=== PATIENT | male | born 1985 | race Caucasian/White ===

== ENCOUNTER 2024-04-11 22:34 | Outpatient (REF) | payer BC, SELFPAY ==
[2024-04-11 20:51] LABS: ESR 6 mm/hr (0-15); HCT 44.4 % (40.0-50.0); HGB 15.3 g/dL (13.5-17.5); MCH 30.2 pg (27.0-33.0); MCHC 34.5 % (32.0-36.0); MCV 88 fL (80-95); MPV 11.3 fL (8.0-11.0); Platelet Count 212 10^3/uL (130-400); RBC 5.06 10^6/uL (4.36-5.78); RDW 12.2 % (11.8-14.1); RDW-SD 39.4 fL
[2024-04-11 20:58] LABS: C-Reactive Protein < 0.50 mg/dL (<or=0.5)
--- OUTSIDE RECORDS SUMMARY | 2024-04-11 22:37 | XMS_ITS | Encounter Summary ---
Author Organization [facility] Address [address] [place] [id number] Care Team Providers Care Fur Finisher Tailor Name Role Phone Unavailable Primary Care Provider Unavailabl e Encounter Details Date Type Department Care Team (Late st Contact Info) Description 01/14/2020 Lab Requisition [facility] Pathology & Laboratory Medicine - [address] [address] Unknown, Provider, Social History Tobacco Use Types Packs/Day Years Used Date Smoking Tobacco: Never Assessed Sex and Gender Information Value Date Recorded Sex Assigned at Not on file Gender Identity Not on file Sexual Orientation Not on file documented as of this encounter Plan of Treatment Not on file documented as of this encounter Procedures Procedure Name Priority Date/Time Associated Diagnosis Comments ZZCOVID-19 TEST [facility] PCR Today 01/14/2020 14:11 EDT COVID-19 TESTING Routine 01/14/2020 14:1 1 EDT documented in this encounter Results * COVID-19 TEST [facility] PCR (01/14/2020 14:11 EDT) Swab ENTIRE NASOPHARYNX / Unknown 01/14/2020 14:11 EDT 01/14/2020 21:30 EDT Provider Unknown MICROBIOLOGY - GENER AL ORDERABLES [facility] [address] [place] [address] * COVID-19 TESTING (01/14/2020 14:11 EDT) COVID-19 rt-PCR Result Negative Negative 01/15/2020 7:35 EDT [facility] Comment: Negative results do not preclude 2019-nCoV infection and should not be used as the sole basis for treatment or other patient management decisions. Negative results must be combined with clinical observations, patient history, and epidemiological information. This test has not been FDA cleared or approved. This test has been authorized by FDA under an EUA for use by authorized laboratories. This test has been authorized only for detection of nucleic acid from 2019-nCoV, not for any other viruses or pathogens. This test is only authorized for the duration of the declaration that circumstances exist justifying the authorization of emergency use of in vitro diagnostic tests for detection and/or diagnosis of 2019-nCoV under section 564(b)(1) of Act, 21 U.S.C ?? 360bbb-3(b) (1), unless the authorization is terminated or revoked sooner. Performed on the [employer] instrument Performing Lab [facility] 01/15/2020 7:35 EDT [facility] Swab ENTIRE NASOPHARYNX / Unknown 01/14/2020 14:11 EDT 01/14/2020 21:30 EDT Provider Unknown MICROBIOLOGY - GENER AL ORDERABLES [facility] [address] [place] [address] documented in this encounter Visit Diagnoses Not on filedocumented in this encounter
--- OUTSIDE RECORDS SUMMARY | 2024-04-11 22:37 | XMS_ITS | Continuity of Care Document ---
Author Organization [facility] Address [address] [place] [address] Care Team Providers Care Applied Psychology Professor Name Role Phone Ayan Pena Primary Care Physician Encounter [facility] Date(s): 03/09/24 - 03/09/[address] [id number] Discharge Disposition: Home or Self Care Attending Physician: Yamilka Diez Admitting Physician: Yamilka Diez Allergies, Adverse Reactions, Alerts No Known Medication Allergies Results Laboratory List Name Date Automated Diff 03/09/24 C-Reactive Protein 03/09/24 CBC w/ Diff 03/09/24 Comprehensive Metabolic Panel 03/09/24 Sedimentation Rate (ESR) 03/09/24 Most recent to oldest [Reference Range]: 1 WBC [5.0-10.0 x10^3/mcL] 5.5 x10^3/mcL (03/09/24 4:15 PM) RBC [4.6-6.0 x10^6/mcL] 4.9 x10^6/mcL (03/09/24 4:15 PM) Neutro Auto [40.0-75.0 %] 52.3 % (03/09/24 4:15 PM) Lymph Auto [20.0-50.0 %] 32.7 % (03/09/24 4:15 PM) [place] Auto [2.0-15.0 %] 9.9 % (03/09/24 4:15 PM) Basophil Auto [0.0-1.0 %] 0.7 % (03/09/24 4:15 PM) BUN [7-18 mg/dL] 15 mg/dL (03/09/24 4:15 PM) Glucose Level [74-106 mg/dL] 95 mg/dL (03/09/24 4:15 PM) Potassium Level [3.5-5.1 mmol/L] 4.2 mmo l/L (03/09/24 4:15 PM) MCV [80.0-96.0 fL] 87.8 fL (03/09/24 4:15 PM) CRP [<=10.0 mg/L] 0.6 mg/L (03/09/24 4:15 PM) AST [15-37 unit/L] 12 unit/L *LOW* (03/09/24 4:15 PM) ALT [16-63 unit/L] 30 unit/L (03/09/24 4:15 PM) MCHC [31.0-35.0 g/dL] 34.6 g/dL (03/09/24 4:15 PM) Sodium Level [136-145 mmol/L] 143 mmol/L (03/09/24 4:15 PM) Hct [41.0-51.0 %] 43.3 % (03/09/24 4:15 PM) Calcium Level [8.5-10.1 mg/dL] 8.8 mg/dL (03/09/24 4:15 PM) Albumin Level [3.4-5.0 g/dL] 4.0 g/dL (03/09/24 4:15 PM) Protein Total [6.4-8.2 g/dL] 7.4 g/dL (03/09/24 4:15 PM) MCH [26.0-32.0 pg] 30.4 pg (03/09/24 4:15 PM) Neutro Absolute 2.9 x10^3/mcL *NA* (03/09/24 4:15 PM) Bilirubin Total [0.2-1.0 mg/dL] 0.4 mg/d L (03/09/24 4:15 PM) Hgb [14.0-18.0 g/dL] 15.0 g/dL (03/09/24 4:15 PM) Alk Phos [46-146 unit/L] 58 unit/L (03/09/24 4:15 PM) Platelets [130-450 x10^3/mcL] 210 x10^3/ mcL (03/09/24 4:15 PM) CO2 [21-32 mmol/L] 27 mmol/L (03/09/24 4:15 PM) eGFR Non-AA [>=60] 112 (03/09/24 4:15 PM) eGFR AA [>=60] 112 (03/09/24 4:15 PM) Chloride Level [98-107 mmol/L] 106 mmol/ L (03/09/24 4:15 PM) RDW-CV [11.5-14.5 %] 12.4 % (03/09/24 4:15 PM) Imm Gran Auto [0.0-0.9 %] 0.2 % (03/09/24 4:15 PM) Creatinine Level [0.70-1.30 mg/dL] 0.91 mg/dL (03/09/24 4:15 PM) Eos, Auto [1.0-6.0 %] 4.2 % (03/09/24 4:15 PM) ESR, Westergren [0-20 mm/hr] 2 mm/hr (03/09/24 4:15 PM) Social History Social History Type Response Sex Male Patient Care team information Care Team Personnel Name: Ayan Pena MD Position: Physician Member Role: Primary Care Physician Address: Address: [address] [place] [phone]- [place]
--- OUTSIDE RECORDS SUMMARY | 2024-04-11 22:37 | XMS_ITS | Referral Summary ---
Author Organization [facility] Address [address] [place] [address] Care Team Providers Care Filter Plant Operator Name Role Phone Unavailable Primary Care Provider Unavailabl e Social History Tobacco Use Types Packs/Day Years Used Date Smoking Tobacco: Never Assessed Interpersonal Safety Answer Date Record ed Physically Hurt Never 08/12/2020 Verbally Threaten Not on file 08/12/2020 Sex and Gender Information Value Date Recorded Sex Assigned at Not on file Gender Identity Not on file Sexual Orientation Not on file Plan of Treatment Not on file
--- OUTSIDE RECORDS SUMMARY | 2024-04-11 22:37 | XMS_ITS | Continuity of Care Document ---
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 It does not include entries that were removed or entered in error. Problem Status Onset Date Problem Type Date of Resolution Comments Source Concussion injury of brain Active Condition [facility] Major depressive disorder Active Condition [facility] Other Specified Counseling Active Condition [facility] Posttraumatic stress disorder Active Condition [facility] Tinnitus Active Condition [facility] adjustment disorder Active Condition [facility] depression Active Condition [facility] visit for: services physical separation Active Condition [facility] Occupational Therapy Active Condition DoD Suicidal Ideation Active Condition [facility] alcohol dependence (alcoholism) Active Condition [facility] major depression, recurrent Active Condition [facility] visit for: routine eye exam Active Condition DoD palpitations Active Condition DoD lower back pain Active Condition DoD Need For Vaccination Against Smallpox Inactive Condition DoD Need For Vaccination Against Bacterial Diseases Inactive Condition DoD visit for: screening exam pulmonary tuberculosis Active Condition DoD visit for: services physical Active Condition DoD Need For Vaccination Hepatitis A Inactive Condition DoD Need For Vaccination Typhoid Inactive Condition [facility] Inquiry And Counseling: Functional Status At Home Active Condition [facility] Guidance: Concerns About Unsafe Sexual Practices Active Condition [facility] Patient Education - HIV Active Condition [facility] visit for: screening exam Active Condition [facility] visit for: issue medical certificate Inactive Condition DoD allergy to certain foods Active Condition possibly to red dye DoD Murmurs Active Condition newly diagnosed DoD urticaria Active Condition DoD epistaxis Active Condition none now after pack removal. d/c abx. afrin prn bleeding. saline qid for 5 days. f/u with [facility] prn. 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 It does not include entries that were removed or entered in error. Substance Category Reaction Severity Reaction type Status Date Reported Comments Source No Known Allergies Drug allergy (disorder) active 06/19/2007 [place] Immunizations Combined list of available immunizations from the Department of Defense and Veterans Affairs facilities. Immunization Series Date Given Administered By Site Reaction Lot Number CVX Code Drug Law Firm Partner Status Comments Source FLU,3 YRS (HISTORICAL) 2014 88 complet ed PROVIDE [facility]TE [facility] hepatitis B vaccine, adult dosage 3 2007 [id number] Unknown (UNK) comple t ed hepatitis B vaccine, adult dosage DoD influenza virus vaccine, live, attenuated, for intranasal use 1 2007 [id number] [employer] (MED) complet ed influenza virus vaccine, live, attenuate d, for intranasa l use DoD anthrax vaccine 4 2007 [id number] Sanofi Pasteur ([facility]) complet ed anthrax vaccine DoD typhoid Vi capsular polysaccharid e vaccine 1 2007 [id number] Unknown (UNK) comple t ed typhoid Vi capsular polysacch aride vaccine DoD anthrax vaccine 3 2006 UNK 24 [employer] ([facility]) complet ed anthrax vaccine DoD influenza virus vaccine, live, attenuated, for intranasal use 1 2006 [id number] [employer] (MED) complet ed influenza virus vaccine, live, attenuate d, for intranasa l use DoD anthrax vaccine 2 2006 [id number] [employer] ([facility]) complet ed anthrax vaccine DoD vaccinia (smallpox) vaccine 1 2006 [id number] Niranjan ([facility]) complet ed vaccinia (smallpox ) vaccine DoD anthrax vaccine 1 2006 UNK 24 Unknown (UNK) comple t ed anthrax vaccine DoD influenza virus vaccine, split virus (incl. purified surface antigen)-reti red CODE 1 2005 [id number] Sanofi Pasteur ([facility]) complet ed influenza virus vaccine, split virus (incl. purified surface antigen)- retired CODE DoD typhoid Vi capsular polysaccharid e vaccine 1 2005 [id number] Sanofi Pasteur ([facility]) complet ed typhoid Vi capsular polysacch aride vaccine DoD hepatitis A and hepatitis B vaccine 3 2005 [id number] Merck (MSD) complet ed hepatitis A and hepatitis B vaccine DoD hepatitis A and hepatitis B vaccine 2 2005 [id number] 104 SmithKline (SKB) complet ed hepatitis A and hepatitis B vaccine DoD varicella virus vaccine 1 2005 NONE 21 (NON) Not Given varicella virus vaccine DoD hepatitis B vaccine, adult dosage 1 2005 NONE 43 (NON) Not Given hepatitis B vaccine, adult dosage DoD hepatitis A vaccine, adult dosage 1 2005 [id number] 52 [employer] (SKB) complet ed hepatitis A vaccine, adult dosage DoD measles, mumps and rubella virus vaccine 1 2005 [id number] Merck (MSD) complet ed measles, mumps and rubella virus vaccine DoD tetanus and diphtheria toxoids, adsorbed, preservative free, for adult use (2 Lf of tetanus toxoid and 2 Lf of diphtheria toxoid) 1 2005 [id number] Sanofi Pasteur ([facility]) complet ed tetanus and diphtheri a toxoids, adsorbed, preservat [place] free, for adult use (2 Lf of tetanus toxoid and 2 Lf of diphtheri a toxoid) DoD poliovirus vaccine, inactivated 1 2005 [id number] Sanofi Pasteur ([facility]) complet ed polioviru s vaccine, inactivat ed DoD influenza virus vaccine, split virus (incl. purified surface antigen)-reti red CODE 1 2005 [id number] [employer]. (MED) complet ed influenza virus vaccine, split virus (incl. purified surface antigen)- retired CODE DoD meningococcal polysaccharid e vaccine (MPSV4) 1 2005 [id number] Sanofi Pasteur ([facility]) complet ed meningoco ccal polysacch aride vaccine (MPSV4) DoD Encounters Combined list of: 1) Encounters from Department of Veterans Affairs facilities going back up to thelast 18 months. 2) Encounters from the Department of Defense facilities going back up to 280 months. Location Location Details Encounter Type Encounter Number Reason For Visit Attending Provider ADM Date DC Date Status Disposition Source [place] Enrique [place] [place] OUTPATIENT [id number] BRIAN Coley 09/28 Released w/o Limitations [place]) [place] [id number] IMM MAI MCKINNON 09/29 Released w/o Limitations [place] ) [place]IENT [id number] f/u from er for noseble eding and cough BETH SMITH S 11/07 Sick at Home/Quarter s [place]rique [place]) [place] [facility] OUTPATIENT [id number] Anterio r epistax is/ Anemia SILVANASRINI COLBY 11/09 Released w/o Limitations [place] [facility] [place] Enrique [place] OUTPATIENT [id number] sudden onset of nausea NUFERNANDA ROYAL 11/10 Released w/o Limitations [place] Enrique [place]) [place]rique [place]) OUTPATIENT [id number] food allergi es SIENA GUADARRAMA 11/11 Released w/o Limitations [place]rique [place]) [place] Enrique Hernandez [place] OUTPATIENT [id number] A [employer] e screen HEENA BROWNE 12/21 Released w/o Limitations [place]rique [place]) [place] Enrique Hernandez [place] OUTPATIENT [id number] A2/58 por shots. HEENA BROWNE 01/04 Released w/o Limitations [place] Enrique [place] OUTPATIENT [id number] self-ca re and HIV/STD classes MARCELINA TAYLOR JR 03/15 Released w/o Limitations [facility]) [facility] Optometry ) [facility] [id number] [facility]/18 [facility]ased w/o Limitations [facility] Optomet ry) [facility] Physical Exam) OUTPATIENT [id number] GLADYS BELTRE 03/18 Released w/o Limitations [facility] Physica l Exam) [facility] Pre/Post Deploymen t) OUTPATIENT [id number] MARIANNA COPELAND Rahel 05/06 Released w/o Limitations [facility] VCZ Pre/Pos t Deploym ent) [facility] Pre/Post Deploymen t) OUTPATIENT [id number] [facility] NICKY TORRES 11/22 Released w/o Limitations [facility] Pre/Pos t Deploym ent) [facility] Pre/Post Deploymen t) OUTPATIENT [id number] NICKY TORRES 01/30 Released w/o Limitations [facility] Pre/Pos t Deploym ent) [facility] OUTPATIENT [id number] 08/21 Released w/o Limitations Theater Fac[facility] y [facility] Physical Exam) OUTPATIENT [id number] MAISHA VAUGHN 04/11 Released w/o Limitations [facility] Physica l Exam) [facility] Emergency Room) OUTPATIENT [id number] 22yo M medical clearan [place]ST [place] 06/03 Left Against Medical Advice [facility] Emergen cy Room) [facility] DIRECT TO MTF FROM OTHER THAN ER OR [facility] [id number] DIETER DAVIS 06/04 RETURNED TO DUTY [facility] General Surgery) INPATIENT [id number] OIF/OEF Audit C TRESSA Trinidad 06/06 Inpatient- Still a Patient [facility] ) [facility] Hearing Conservat ion) INPATIENT [id number] RICHARDSON DUMONT 06/12 Inpatient- Still a Patient [facility] Hearing Conserv ation) [facility] Optometry ) INPATIENT [id number] Sep LIZY Dove NMN 06/12 Inpatient- Still a Patient [facility] Opt[facility]) Procedures Combined list of: 1) Procedures from Department of Veterans Affairs facilities going back up to thelast 18 months, not all VA non-surgical procedures are included; 2) All procedures from the Department of Defense facilities. Procedure Procedure Type Code Date Perfomer Comments Pepito e Psychotherapy Individual Approximately 45 Minutes Psychotherapy Individual Approximately 45 Minutes [id number] 09/27/19 09 RICHARDSON RODRIGUEZ DoD Psychotherapy Individual Approximately 45 Minutes Psychotherapy Individual Approximately 45 Minutes [id number] 09/06/20 08 RICHARDSON RODRIGUEZ Case staffed with the Clinic Med team, was provided with a refill of citalopram 40mg and Seroquel 25mg which he states is very helpful to him. DoD Psychotherapy Individual Approx 30 Min W/ Medical Evaluation & Management Psychotherapy Individual Approx 30 Min W/ Medical Evaluation & Management 01622 08/06/20 08 ANY BONILLA [facility] Psychotherapy Individual Approximately 45 Minutes Psychotherapy Individual Approximately 45 Minutes [id number] 07/19/20 08 RICHARDSON RODRIGUEZ Also staffed case with JIM Goyal's current provider. [facility] Psychiatric Diagnostic Evaluation Review of Records and Reports Psychiatric Diagnostic Evaluation Review of Records and Reports [id number] 07/11/20 08 BRIAN LOMELI [facility] Psychotherapy Indiv Approx 45 Min W/ Medical Evaluation & Management Psychotherapy Indiv Approx 45 Min W/ Medical Evaluation & Management [id number] 07/11/20 08 BRIAN LOMELI [facility] Psychotherapy Indiv Approx 45 Min W/ Medical Evaluation & Management Psychotherapy Indiv Approx 45 Min W/ Medical Evaluation & Management 73464 06/26/20 08 BECKIE BALTAZAR [facility] Psychiatric Diagnostic Evaluation Review of Records and Reports Psychiatric Diagnostic Evaluation Review of Records and Reports [id number] 06/18/20 08 BRIAN LOMELI [facility] Psychiatric Diagnostic Evaluation Comprehensive Examination Psychiatric Diagnostic Evaluation Comprehensive Examination [id number] 06/18/20 08 BRIAN LOMELI [facility] Threshold Audiogram (Pure Tone) Threshold Audiogram (Pure Tone) 21527 06/18/20 08 RICHARDSON DUMONT [facility] Physician Supervised Ordering / Handling / Fitting Patient Devices Physician Supervised Ordering / Handling / Fitting Patient Devices 42171 06/18/20 08 LISSETT DUMONTIAN Sadie [facility] Visual Function Screening Visual Function Screening 22564 06/12/20 08 LIZY WOO [facility] Patient Training And Self-Care Skills Additional 15 Minutes Patient Training And Self-Care Skills Additional 15 Minutes [id number] 06/05/20 08 MELONY ROSARIO [facility] Occupational Therapy Evaluation Occupational Therapy Evaluation 22361 06/05/20 08 MELONY ROSARIO [facility] Physical Medicine - Group Physical Therapy Se ion Physical Medicine - Group Physical Therapy Session [id number] 06/04/20 08 EPIFANIO PERSON [facility] Psychiatric Diagnostic Evaluation Comprehensive Examination Psychiatric Diagnostic Evaluation Comprehensive Examination [id number] 06/03/20 08 BECKIE BALTAZAR [facility] Skin Test Anergy Tuberculin Intradermal Skin Test Anergy Tuberculin Intradermal 71103 04/11/20 08 BACCINELLI, ANDREAS [facility] Immunization Administration By Injection, One Vaccine Immunization Administration By Injection, One Vaccine 23141 04/11/20 08 BACCINELLI, ANDREAS [facility] Screening Test Of Visual Acuity, Quantitative, Bilateral Screening Test Of Visual Acuity, Quantitative, Bilateral 33294 04/11/20 08 BACCINELLI, ANDREAS DoD Immunization Administration By Injection, Each Additional Vaccine 01/31/20 07 BACCINELLI, ANDREAS DoD Vaccines Vaccines 67553 01/31/20 07 BACCINELLI, [facility] Anthrax Vaccine, For Subcutaneous Use 01/31/20 07 BACCINELLI, ANDREAS DoD Immunization Administration By Injection, One Vaccine Immunization Administration By Injection, One Vaccine 15674 01/31/20 07 BACCINELLI, ANDREAS DoD Immunization Administration By Injection, One Vaccine Immunization Administration By Injection, One Vaccine 31217 05/06/20 06 NOHEMY GARNETT DoD Skin Test Anergy Tuberculin Intradermal Skin Test Anergy Tuberculin Intradermal 28064 05/06/20 06 NOHEMY GARNETT DoD Typhoid Vaccine Acetone-Killed, Dried (U.S. ) Typhoid Vaccine Acetone-Killed, Dried (U.S. ) 41058 03/24/20 06 RICHARTE, GLADYS DoD Immunization Administration By Injection, Each Additional Vaccine 03/24/20 06 ROSELIABARNHARTE, GLADYS DoD Hepatitis A And Hepatitis B (Intramuscular Use) Adult Dosage Hepatitis A And Hepatitis B (Intramuscular Use) Adult Dosage 86034 03/24/20 06 BLANE BELTRERachana Banegas Immunization Administration By Injection, One Vaccine Immunization Administration By Injection, One Vaccine 01213 03/24/20 06 BLANE BELTREO [facility] Visual Function Screening Visual Function Screening 44146 03/18/20 06 TAE CARDOZA [facility] Venipuncture Venipuncture 18755 01/05/20 06 CARLO HUFF [facility] Skin Test Anergy tuberculin Skin Test Anergy tuberculin 50202 01/05/20 06 DARIANATASHACARLO A [facility] Screening Test Of Visual Acuity, Quantitative, Bilateral Screening Test Of Visual Acuity, Quantitative, Bilateral 37475 09/30/19 06 BRIAN DOUGLAS [facility] Physician Supervised Injection Intramuscular Antibiotic Physician Supervised Injection Intramuscular Antibiotic 71663 09/29/19 06 MAI MCKINNON Td Vaccine Td Vaccine 11900 09/29/19 06 MAI MCKINNON Vaccines Viral Measles, Mumps and Rubella, Live Vaccines Viral Measles, Mumps and Rubella, Live 38407 09/29/19 06 MAI MCKINNON Venipuncture Venipuncture 07376 09/29/19 06 MAI MCKINNON Physician Supervised Injection Subcutaneous Physician Supervised Injection Subcutaneous 32023 09/29/19 06 MAI MCKINNON Skin Test Anergy Tuberculin Intradermal Skin Test Anergy Tuberculin Intradermal 99482 09/29/19 06 MAI MCKINNON Hepatitis A Vaccine Adult Dosage (Intramuscular Use) Hepatitis A Vaccine Adult Dosage (Intramuscular Use) 39343 09/29/19 06 MAI MCKINNON Immunization Administration By Injection, One Vaccine Immunization Administration By Injection, One Vaccine 16366 09/29/19 06 MAI MCKINNON Influenza Split Virus Vaccine 0.5mL Dosage Intramuscular 09/29/19 06 MAI MCKINNON Vaccines Viral Polio, Inactivated Vaccines Viral Polio, Inactivated 95472 09/29/19 06 MAI MCKINNON Meningococcal Polysaccharide Vaccine Serogroup C Meningococcal Polysaccharide Vaccine Serogroup C 87352 09/29/19 06 MAI MCKINNON Immunization Administration By Injection, Each Additional Vaccine 09/29/19 06 MAI MCKINNON Injection, penicillin G benzathine, up to 1,200,000 units 09/29/19 MCKINNON, BENITOELLA B DoD SKIN TEST; TUBERCULOSIS, INTRADERMAL 01/05/20 [facility] ECHOCARDIOGRAPHY, TRANSTHORACIC, REAL-TIME WITH IMAGE DOCUMENTATION (2D), INCLUDES M-MODE RECORDING, WHEN PERFORMED, COMPLETE, WITHOUT SPECTRAL OR COLOR DOPPLER ECHOCARDIOGRAPHY 11/16/19 [facility] COLLECTION OF VENOUS BLOOD BY VENIPUNCTURE 11/04/19 [facility] IMMUNIZATION ADMINISTRATION (INCLUDES PERCUTANEOUS, INTRADERMAL, SUBCUTANEOUS, OR INTRAMUSCULAR INJECTIONS); EACH ADDITIONAL VACCINE (SINGLE OR COMBINATION VACCINE/TOXOID) 09/29/19 [facility] PHYS/OTH QUALIFIED HEALTH SOCIAL SERVICES MANAGER QUALIFIED,EDUCATION,T RAIN,LICENSURE/REGULA TION (WHEN APPLICABLE) EDUC SER RENDERED TO PATS IN A GRP SETTING (EG,,OBESITY, OR DIABETIC INSTRUCT) 09/28/19 [facility] SCREENING TEST OF VISUAL ACUITY, QUANTITATIVE, BILATERAL 09/28/19 DoD INDIVIDUAL PSYCHOTHERAPY, INSIGHT ORIENTED, BEHAVIOR MODIFYING AND/OR SUPPORTIVE, IN AN OFFICE OR OUTPATIENT FACILITY, APPROXIMATELY 45 TO 50 MINUTES [id number] WITH THE PATIENT 09/24/19 09 DoD INDIVIDUAL PSYCHOTHERAPY, INSIGHT ORIENTED, BEHAVIOR MODIFYING AND/OR SUPPORTIVE, IN AN OFFICE OR OUTPATIENT FACILITY, APPROXIMATELY 45 TO 50 MINUTES [id number] WITH THE PATIENT 09/06/20 08 DoD INDIVIDUAL PSYCHOTHERAPY, INSIGHT ORIENTED, BEHAVIOR MODIFYING AND/OR SUPPORTIVE, IN AN OFFICE OR OUTPATIENT FACILITY, APPROXIMATELY 20 TO 30 MINUTES [id number] W THE PATIENT; W MED EVAL & MGT SER 08/06/20 08 DoD INDIVIDUAL PSYCHOTHERAPY, INSIGHT ORIENTED, BEHAVIOR MODIFYING AND/OR SUPPORTIVE, IN AN OFFICE OR OUTPATIENT FACILITY, APPROXIMATELY 45 TO 50 MINUTES [id number] WITH THE PATIENT 07/19/20 08 DoD PSYCHIATRIC EVALUATION OF HOSPITAL RECORDS, OTHER PSYCHIATRIC REPORTS, PSYCHOMETRIC AND/OR PROJECTIVE TESTS, AND OTHER ACCUMULATED DATA FOR MEDICALDIAGNOSTIC PURPOSES 07/10/20 08 DoD INDIVIDUAL PSYCHOTHERAPY, INSIGHT ORIENTED, BEHAVIOR MODIFYING AND/OR SUPPORTIVE, IN AN OFFICE OR OUTPATIENT FACILITY, APPROXIMATELY 45 TO 50 MINUTES [id number] W THE PATIENT; W MED EVAL & MGT SER 06/26/20 08 DoD PSYCHIATRIC EVALUATION OF HOSPITAL RECORDS, OTHER PSYCHIATRIC REPORTS, PSYCHOMETRIC AND/OR PROJECTIVE TESTS, AND OTHER ACCUMULATED DATA FOR MEDICALDIAGNOSTIC PURPOSES 06/18/20 [facility] SCREENING TEST OF VISUAL ACUITY, QUANTITATIVE, BILATERAL 06/12/20 DoD HANDLING,CONVEY,&/ANY OTH SERV,CONN W IMP OF ORD INV DEV (EG,DESIGN,FIT,PCK,HN D,DEL/MAIL) WHEN DEV SUCH ORTH,PROT,PROSTH,ZARI, OUTSIDE LAB/SHOP BUT ITEM ENZO,&ARE TO BE FIT&ADJ,ATT PHYS/OTH QUAL HCP 06/12/20 08 [facility] SELF-CARE/HOME MANAGMENT TRAIN (EG,ACT OF DAILY LIVING (ADL) &COMPENSAT TRAIN,MEAL PREPARATION,SAFETY PROCS,AND INSTRUCT IN USE OF ASST TECHNOLOGY DEV/ADPT EQUIP) DIR ONE-ON-ONE CONT,EA 15 MINUTES 06/11/20 08 [facility] THERAPEUTIC PROCEDURE(S), GROUP (2 OR MORE INDIVIDUALS) 06/05/20 08 [facility] THERAPEUTIC PROCEDURE(S), GROUP (2 OR MORE INDIVIDUALS) 06/04/20 08 [facility] SELF-CARE/HOME MANAGMENT TRAIN (EG,ACT OF DAILY LIVING (ADL) &COMPENSAT TRAIN,MEAL PREPARATION,SAFETY PROCS,AND INSTRUCT IN USE OF [employer]ST TECHNOLOGY DEV/ADPT EQUIP) DIR ONE-ON-ONE CONT,EA 15 MINUTES 06/04/20 08 [facility] COLLECTION OF VENOUS BLOOD BY VENIPUNCTURE 06/03/20 08 [facility] PSYCHIATRIC DIAGNOSTIC INTERVIEW EXAMINATION 06/02/20 08 [facility] SKIN TEST; TUBERCULOSIS, INTRADERMAL 04/11/20 08 [facility] IMMUNIZATION ADMINISTRATION (INCLUDES PERCUTANEOUS, INTRADERMAL, SUBCUTANEOUS, OR INTRAMUSCULAR INJECTIONS); EACH ADDITIONAL VACCINE (SINGLE OR COMBINATION VACCINE/TOXOID) 01/31/20 07 [facility] SKIN TEST; TUBERCULOSIS, INTRADERMAL 05/06/20 06 [facility] VIS FUNCT SCREEN,AUTOMAT/SEMI-A UTOMAT BILAT QUANT DETERM VISUAL ACUITY,OCULAR ALIGN,COLOR VISION,PSEUDOISOCHROM AT PLATES,& FIELD VIS (MAY INC ALL/SOME SCRN DETERM FOR CONTRAST SENSITIV,VIS UND GLARE) 03/18/20 06 [facility] IMMUNIZATION ADMINISTRATION (INCLUDES PERCUTANEOUS, INTRADERMAL, SUBCUTANEOUS, OR INTRAMUSCULAR INJECTIONS); EACH ADDITIONAL VACCINE (SINGLE OR COMBINATION VACCINE/TOXOID) 03/18/20 06 DoD Social History Combined list of available smoking, tobacco, and other social history from Department of Defense and Veterans Affairs facilities. Social History Type Response Date Comment [facility] e Tobacco smoking status NHIS QUIT TOBACCO USE 1-7 YEARS AGO 09/03/2015 HYANNIS This section is an empty social history section. [facility]
--- OUTSIDE RECORDS SUMMARY | 2024-04-11 22:37 | XMS_ITS | Clinical Summary ---
Author Organization [facility] Address [address] [place] [address] Care Team Providers Care Dealer Sales Manager Name Role Phone Unavailable Primary Care Provider [...] Orientation Not on file Plan of Treatment Health Maintenance Due Date Last Done Comments Hepatitis C Screen 1987 Hepatitis B Vaccine (1 of 3 - 19+ 3-dose series) 11/20 COVID-19 Vaccine (2022- season) 2023
[2024-04-13 11:56] LABS: Lyme Ab w Rflx to Lyme Confirm Negative (Negative)
[2024-04-15 00:02] LABS: Anaplasma phagocytophilum Negative (Negative); B. miyamotoi PCR Negative (Negative); Babesia divergens/MO-1 Negative (Negative); Babesia duncani Negative (Negative); Babesia microti Negative (Negative); Ehrlichia chaffeensis Negative (Negative); Ehrlichia ewingii/canis Negative (Negative); Ehrlichia muris eauclairensis Negative (Negative)
== END 2024-04-11 22:35 | disposition home or self-care (01) ==
LOC: NCHCN 22:34
PROVIDERS: Visit Provider Nurse Practitioner Family
DX: R53.83 Other fatigue (principal)
CPT/HCPCS: 85027; 85652; 87798; 86140; 86618